=== PATIENT | female | born 1960 | race Caucasian/White ===

== ENCOUNTER 2016-12-02 14:18 | Inpatient (IN) | payer MEDICARE, MEDICAID ==
[~2016-12-02] VITALS: Ht 162.6 cm; Wt 99.8 kg
[~2016-12-02 14:18] MED LIST: ASPI-1159 PO; ATOR40TA70 PO; BACL-141 PO; CALC667C4 PO; CETI10CA2 PO; FURO-152 PO; GABA-529 PO; GLIM4TAB2 PO; KEPP500 PO; OMEP20CA10 PO; SEVE800T8 PO; WARF2.5T47 PO
[2016-12-02] MEDS ORDERED: LEVETIRACETAM 500MG PREMIX 100 ML IV ONE (15:30)
[2016-12-02 16:10] LABS: BASOPHILS % 0.3 % (0.0-2.0); EOSINOPHILS % 3.9 % (0.0-5.0); HEMATOCRIT. 36.1 % (36.0-48.0); HEMOGLOBIN. 11.7 g/dL (12.0-16.0); LYMPHOCYTES % 12.1 % (20.0-50.0); MEAN CORPUSCULAR HEMOGLOBIN 27.7 pg (28.0-32.0); MEAN CORPUSCULAR VOLUME 85.3 fL (81.0-99.0); MEAN PLATELET VOLUME 8.4 fl (7.4-10.4); MONOCYTES % 4.2 % (2.0-8.0); NEUTROPHILS % 79.5 % (40.0-76.0); PLATELET 210 x1000/uL (130-400); RED BLOOD CELL COUNT 4.23 mill/uL (4.2-5.4); RED CELL DISTRIBUTION WIDTH 15.3 % (11.6-14.6)
[2016-12-02 16:13] LABS: INR 1.2; PROTHROMBIN TIME 12.2 sec
[2016-12-02 16:14] LABS: CARBON DIOXIDE 24 mEq/L (21-32); CHLORIDE 95 mEq/L (98-107)
[2016-12-02] MEDS ORDERED: NITROGLYCERIN 0.4MG TABLET SL SL PRN (17:45)
[2016-12-02] MEDS ORDERED: LORAZEPAM 2MG/ML CPJ IV PRN (17:45)
[2016-12-02] MEDS ORDERED: ZOLPIDEM TARTRATE 5MG TABLET PO PRN (17:45)
[2016-12-02] MEDS ORDERED: DOCUSATE SODIUM 100MG CAPSULE PO PRN (17:45)
[2016-12-02] MEDS ORDERED: IPRATROPIUM/ALBUTEROL 0.5-3(2.5)MG/3ML NEB INH PRN (17:45)
[2016-12-02] MEDS ORDERED: DIPHENHYDRAMINE 50MG/ML VIAL IV PRN (17:45)
[2016-12-02] MEDS ORDERED: ONDANSETRON HCL 4MG/2ML VIAL IV PRN (17:45)
[2016-12-02] MEDS ORDERED: CLONIDINE 0.1MG TABLET PO PRN (17:45)
[2016-12-02] MEDS ORDERED: ENOXAPARIN 40MG/0.4ML SYR SUBCUT SCH (17:45)
[2016-12-02] MEDS ORDERED: GUAIFENESIN 200MG/10ML SUGAR FREE UDC PO PRN (17:45)
[2016-12-02] MEDS ORDERED: DEXTROSE 50% WATER 50ML SYRINGE IV PRN (17:45)
[2016-12-02] MEDS ORDERED: MAGNESIUM/ALUMINUM HYDROXIDE/SIMETHICONE 30ML UDC PO PRN (17:45)
[2016-12-02 19:30] VITALS: BP 149/94
[2016-12-02 20:00] VITALS: BP 149/94
[2016-12-02] MEDS: ATORVASTATIN CALCIUM 40MG TABLET PO SCH (21:21)
[2016-12-02] MEDS: LEVETIRACETAM 500MG TABLET PO SCH (21:22)
[2016-12-02] MEDS: GABAPENTIN 300MG CAPSULE PO SCH (21:22)
[2016-12-02] MEDS: ENOXAPARIN 30MG/0.3ML SYR SUBCUT SCH (21:22)
[2016-12-02] MEDS: BLOOD SUGAR DIAGNOSTIC STRIP TEST SCH (21:41)
[2016-12-02] MEDS: INSULIN LISPRO 100 UNITS/ML SUBCUT SCH (21:48)
[2016-12-02 23:08] LABS: CREATINE KINASE 79 IU/L (26-192); CREATINE KINASE MB FRACTION 1.3 ng/mL (0.5-3.6); TROPONIN I < 0.02 ng/mL (0.00-0.04)
[2016-12-03] VITALS: BP 116/64
[2016-12-03 04:00] VITALS: BP 149/79
[2016-12-03 05:18] LABS: BASOPHILS % 0.5 % (0.0-2.0); EOSINOPHILS % 4.7 % (0.0-5.0); HEMATOCRIT. 37.1 % (36.0-48.0); HEMOGLOBIN. 12.1 g/dL (12.0-16.0); LYMPHOCYTES % 22.2 % (20.0-50.0); MEAN CORPUSCULAR HEMOGLOBIN 28.1 pg (28.0-32.0); MEAN PLATELET VOLUME 8.6 fl (7.4-10.4); MONOCYTES % 5.1 % (2.0-8.0); NEUTROPHILS % 67.5 % (40.0-76.0); PLATELET 219 x1000/uL (130-400); RED BLOOD CELL COUNT 4.31 mill/uL (4.2-5.4); RED CELL DISTRIBUTION WIDTH 15.3 % (11.6-14.6)
[2016-12-03] MEDS: GABAPENTIN 300MG CAPSULE PO SCH ×3 (05:56→21:42)
[2016-12-03 06:22] LABS: CARBON DIOXIDE 22 mEq/L (21-32); CHLORIDE 95 mEq/L (98-107); CREATINE KINASE 81 IU/L (26-192); TROPONIN I < 0.02 ng/mL (0.00-0.04)
[2016-12-03 06:23] LABS: CREATINE KINASE MB FRACTION 1.2 ng/mL (0.5-3.6)
[2016-12-03] MEDS: BLOOD SUGAR DIAGNOSTIC STRIP TEST SCH ×4 (06:28→20:30)
[2016-12-03] MEDS: SEVELAMER CARBONATE 800 MG TABLET PO SCH ×3 (07:50→18:26)
[2016-12-03 08:00] VITALS: BP 146/86
[2016-12-03] MEDS: ENOXAPARIN 30MG/0.3ML SYR SUBCUT SCH (09:00)
[2016-12-03] MEDS: INSULIN LISPRO 100 UNITS/ML SUBCUT SCH ×4 (09:30→21:40)
[2016-12-03] MEDS: ASPIRIN 325MG EC TABLET PO SCH (09:31)
[2016-12-03] MEDS: LEVETIRACETAM 500MG TABLET PO SCH ×2 (09:31→20:20)
[2016-12-03] MEDS: FOLIC ACID/VITAMIN B COMP W-C TABLET PO SCH (09:31)
[2016-12-03] MEDS: PANTOPRAZOLE SODIUM 40 MG/VIAL IV SCH (09:31)
[2016-12-03 12:00] VITALS: BP 123/76
[2016-12-03] MEDS ORDERED: SODIUM CHLORIDE 0.9% 10ML VIAL ONE (14:05)
[2016-12-03] MEDS ORDERED: IOHEXOL-300 100 ML BOTTLE ONE (14:05)
[2016-12-03 16:00] VITALS: BP 110/74
[2016-12-03 20:00] VITALS: BP 100/65
[2016-12-03] MEDS: ATORVASTATIN CALCIUM 40MG TABLET PO SCH (20:20)
[2016-12-03] MEDS: ACETAMINOPHEN 325MG TABLET PO PRN (21:56)
[2016-12-04] VITALS: BP 99/56
[2016-12-04 04:00] VITALS: BP 99/64
[2016-12-04] MEDS: GABAPENTIN 300MG CAPSULE PO SCH ×3 (06:01→23:36)
[2016-12-04] MEDS: BLOOD SUGAR DIAGNOSTIC STRIP TEST SCH ×4 (06:38→23:37)
[2016-12-04 07:04] LABS: BASOPHILS % 0.7 % (0.0-2.0); EOSINOPHILS % 4.4 % (0.0-5.0); HEMATOCRIT. 34.9 % (36.0-48.0); HEMOGLOBIN. 11.4 g/dL (12.0-16.0); LYMPHOCYTES % 29.7 % (20.0-50.0); MEAN CORPUSCULAR HEMOGLOBIN 28.1 pg (28.0-32.0); MEAN CORPUSCULAR VOLUME 85.8 fL (81.0-99.0); MEAN PLATELET VOLUME 8.3 fl (7.4-10.4); MONOCYTES % 7.9 % (2.0-8.0); NEUTROPHILS % 57.3 % (40.0-76.0); PLATELET 201 x1000/uL (130-400); RED BLOOD CELL COUNT 4.06 mill/uL (4.2-5.4); RED CELL DISTRIBUTION WIDTH 15.8 % (11.6-14.6)
[2016-12-04 08:00] VITALS: BP 108/64
[2016-12-04] MEDS: INSULIN LISPRO 100 UNITS/ML SUBCUT SCH ×4 (09:18→23:41)
[2016-12-04] MEDS: SEVELAMER CARBONATE 800 MG TABLET PO SCH ×3 (09:19→18:07)
[2016-12-04] MEDS: ASPIRIN 325MG EC TABLET PO SCH (09:19)
[2016-12-04] MEDS: LEVETIRACETAM 500MG TABLET PO SCH ×2 (09:19→23:37)
[2016-12-04] MEDS: FOLIC ACID/VITAMIN B COMP W-C TABLET PO SCH (09:19)
[2016-12-04] MEDS: PANTOPRAZOLE SODIUM 40 MG/VIAL IV SCH (09:20)
[2016-12-04] MEDS: ENOXAPARIN 30MG/0.3ML SYR SUBCUT SCH (09:20)
[2016-12-04 12:00] VITALS: BP 104/62
[2016-12-04 16:00] VITALS: BP 101/61
[2016-12-04 20:00] VITALS: BP 94/64
[2016-12-04] MEDS: ATORVASTATIN CALCIUM 40MG TABLET PO SCH (23:36)
[2016-12-05] VITALS: BP_SYST 105; BP_SYST 83; BP_DIAS 45; BP_DIAS 59
[2016-12-05] MEDS: ACETAMINOPHEN 325MG TABLET PO PRN (02:14)
[2016-12-05 04:00] VITALS: BP 105/48
[2016-12-05] MEDS: GABAPENTIN 300MG CAPSULE PO SCH ×3 (06:00→21:51)
[2016-12-05 06:34] LABS: BASOPHILS % 0.4 % (0.0-2.0); EOSINOPHILS % 6.7 % (0.0-5.0); HEMATOCRIT. 35.1 % (36.0-48.0); HEMOGLOBIN. 11.4 g/dL (12.0-16.0); LYMPHOCYTES % 26.2 % (20.0-50.0); MEAN CORPUSCULAR HEMOGLOBIN 28.3 pg (28.0-32.0); MEAN CORPUSCULAR VOLUME 87.4 fL (81.0-99.0); MEAN PLATELET VOLUME 8.3 fl (7.4-10.4); MONOCYTES % 7.2 % (2.0-8.0); NEUTROPHILS % 59.5 % (40.0-76.0); PLATELET 190 x1000/uL (130-400); RED BLOOD CELL COUNT 4.01 mill/uL (4.2-5.4); RED CELL DISTRIBUTION WIDTH 15.6 % (11.6-14.6)
[2016-12-05 08:00] VITALS: BP 103/69
[2016-12-05] MEDS: ENOXAPARIN 30MG/0.3ML SYR SUBCUT SCH (08:09)
[2016-12-05] MEDS: INSULIN LISPRO 100 UNITS/ML SUBCUT SCH ×4 (08:09→21:52)
[2016-12-05] MEDS: FOLIC ACID/VITAMIN B COMP W-C TABLET PO SCH (08:09)
[2016-12-05] MEDS: SEVELAMER CARBONATE 800 MG TABLET PO SCH ×3 (08:09→17:02)
[2016-12-05] MEDS: LEVETIRACETAM 500MG TABLET PO SCH ×2 (08:09→21:50)
[2016-12-05] MEDS: PANTOPRAZOLE SODIUM 40 MG/VIAL IV SCH (08:12)
[2016-12-05] MEDS: ASPIRIN 325MG EC TABLET PO SCH (08:12)
[2016-12-05] MEDS: BLOOD SUGAR DIAGNOSTIC STRIP TEST SCH ×4 (08:12→21:54)
[2016-12-05 12:00] VITALS: BP 99/64
[2016-12-05 16:00] VITALS: BP 107/62
[2016-12-05 20:00] VITALS: BP 112/69
[2016-12-05] MEDS: ATORVASTATIN CALCIUM 40MG TABLET PO SCH (21:54)
[2016-12-06] VITALS: BP 99/60
[2016-12-06] MEDS: ACETAMINOPHEN 325MG TABLET PO PRN ×2 (02:02→09:59)
[2016-12-06 04:00] VITALS: BP 94/49
[2016-12-06] MEDS: GABAPENTIN 300MG CAPSULE PO SCH ×2 (06:04→14:30)
[2016-12-06] MEDS: BLOOD SUGAR DIAGNOSTIC STRIP TEST SCH ×2 (06:32→12:50)
[2016-12-06 07:10] LABS: BASOPHILS % 0.7 % (0.0-2.0); EOSINOPHILS % 5.6 % (0.0-5.0); HEMATOCRIT. 36.1 % (36.0-48.0); HEMOGLOBIN. 11.9 g/dL (12.0-16.0); LYMPHOCYTES % 25.9 % (20.0-50.0); MEAN CORPUSCULAR HEMOGLOBIN 28.5 pg (28.0-32.0); MEAN CORPUSCULAR VOLUME 86.3 fL (81.0-99.0); MEAN PLATELET VOLUME 8.6 fl (7.4-10.4); MONOCYTES % 7.2 % (2.0-8.0); NEUTROPHILS % 60.6 % (40.0-76.0); PLATELET 189 x1000/uL (130-400); RED BLOOD CELL COUNT 4.18 mill/uL (4.2-5.4); RED CELL DISTRIBUTION WIDTH 15.5 % (11.6-14.6)
[2016-12-06 08:00] VITALS: BP 123/70
[2016-12-06] MEDS: FOLIC ACID/VITAMIN B COMP W-C TABLET PO SCH (08:20)
[2016-12-06] MEDS: INSULIN LISPRO 100 UNITS/ML SUBCUT SCH ×2 (08:20→12:50)
[2016-12-06] MEDS: LEVETIRACETAM 500MG TABLET PO SCH (08:20)
[2016-12-06] MEDS: SEVELAMER CARBONATE 800 MG TABLET PO SCH ×2 (08:20→12:50)
[2016-12-06] MEDS: ASPIRIN 325MG EC TABLET PO SCH (08:20)
[2016-12-06] MEDS: ENOXAPARIN 30MG/0.3ML SYR SUBCUT SCH (08:23)
[2016-12-06] MEDS ORDERED: FAMOTIDINE 20MG TABLET PO SCH (09:00)
[2016-12-06 12:00] VITALS: BP 104/63
[2016-12-06 13:28] VITALS: BP 104/63
== END 2016-12-06 15:10 | disposition home or self-care (01) | DRG 100 ==
LOC: ER 14:51 → 6EST 16:15 → ENRESERV 16:25
PROVIDERS: ADMIT Internal Medicine; ATTEND Internal Medicine
PROC: 5A1D60Z (ICD-10-PCS; principal; 2016-12-03)
DX: G40.909 Epilepsy, unspecified, not intractable, without status epilepticus (principal); N18.6 End stage renal disease; E44.0 Moderate protein-calorie malnutrition; I12.0 Hypertensive chronic kidney disease with stage 5 chronic kidney disease or end stage renal disease; E11.22 Type 2 diabetes mellitus with diabetic chronic kidney disease; E78.00 Pure hypercholesterolemia, unspecified; J45.909 Unspecified asthma, uncomplicated; E11.42 Type 2 diabetes mellitus with diabetic polyneuropathy; Z99.2 Dependence on renal dialysis; Z68.37 Body mass index [BMI] 37.0-37.9, adult; Z79.4 Long term (current) use of insulin; Z79.82 Long term (current) use of aspirin; Z86.73 Personal history of transient ischemic attack (TIA), and cerebral infarction without residual deficits; Z79.899 Other long term (current) drug therapy; Z90.49 Acquired absence of other specified parts of digestive tract
CPT/HCPCS: 36415; 70470; 70551; 71010; 80048; 80053; 82542; 82550; 82553; 82962; 83036; 83735; 84484; 85025; 85610; 93005; 96374; 97116; 97162; 97166; 97530; 97535; 99285; A4216; C9113; J1650; J1815; J1953; J2060; J7030; Q9967

== ENCOUNTER 2017-06-16 16:14 | Inpatient (IN) | payer MEDICARE, MEDICAID ==
[~2017-06-16] VITALS: Ht 152.4 cm; Wt 113.4 kg
[2017-06-16 17:30] LABS: BASOPHILS % 0.6 % (0.0-2.0); EOSINOPHILS % 3.9 % (0.0-5.0); HEMATOCRIT. 35.3 % (36.0-48.0); HEMOGLOBIN. 11.4 g/dL (12.0-16.0); LYMPHOCYTES % 15.3 % (20.0-50.0); MEAN CORPUSCULAR HEMOGLOBIN 30.5 pg (28.0-32.0); MEAN CORPUSCULAR VOLUME 94.5 fL (81.0-99.0); MEAN PLATELET VOLUME 8.1 fl (7.4-10.4); MONOCYTES % 3.5 % (2.0-8.0); NEUTROPHILS % 76.7 % (40.0-76.0); PLATELET 236 x1000/uL (130-400); RED BLOOD CELL COUNT 3.74 mill/uL (4.2-5.4); RED CELL DISTRIBUTION WIDTH 16.2 % (11.6-14.6)
[2017-06-16 17:37] LABS: CHLORIDE 99 mEq/L (98-107)
[2017-06-16 17:42] LABS: INR 1.4; PARTIAL THROMBOPLASTIN TIME 27.2 sec (23.4-31.0)
[2017-06-16 17:45] LABS: CARBON DIOXIDE 26 mEq/L (21-32)
[2017-06-16 22:52] VITALS: BP 142/62
[2017-06-17] MEDS ORDERED: DEXTROSE 50% WATER 50ML SYRINGE IV PRN (01:30)
[2017-06-17] MEDS ORDERED: ACETAMINOPHEN 325MG TABLET PO PRN (02:00)
[2017-06-17] MEDS: LEVETIRACETAM 250MG TABLET PO SCH ×3 (02:05→17:21)
[2017-06-17 04:00] VITALS: BP 121/62
[2017-06-17] MEDS: BLOOD SUGAR DIAGNOSTIC STRIP TEST SCH ×4 (05:35→21:53)
[2017-06-17] MEDS ORDERED: LIDOCAINE HCL 1% 20ML VIAL (Pyxis) INJ ONE (06:54)
[2017-06-17 08:05] VITALS: BP 127/60
[2017-06-17] MEDS: INSULIN LISPRO 100 UNITS/ML SUBCUT SCH ×7 (09:27→21:00)
[2017-06-17] MEDS: GLIMEPIRIDE 4MG TABLET PO SCH (09:28)
[2017-06-17] MEDS: BACLOFEN 10MG TABLET PO SCH ×3 (09:28→17:21)
[2017-06-17] MEDS: OMEPRAZOLE 20MG CAPSULE EXTENDED RELEASE PO SCH (09:28)
[2017-06-17] MEDS: CALCIUM ACETATE 667MG CAPSULE PO SCH ×3 (09:28→17:22)
[2017-06-17] MEDS: ASPIRIN 81MG EC TABLET PO SCH (09:28)
[2017-06-17 09:53] LABS: BASOPHILS % 1.1 % (0.0-2.0); HEMATOCRIT. 30.4 % (36.0-48.0); HEMOGLOBIN. 10.1 g/dL (12.0-16.0); LYMPHOCYTES % 18.5 % (20.0-50.0); MEAN CORPUSCULAR HEMOGLOBIN 30.9 pg (28.0-32.0); MEAN CORPUSCULAR VOLUME 93.2 fL (81.0-99.0); MEAN PLATELET VOLUME 8.1 fl (7.4-10.4); MONOCYTES % 4.6 % (2.0-8.0); NEUTROPHILS % 71.8 % (40.0-76.0); PLATELET 199 x1000/uL (130-400); RED BLOOD CELL COUNT 3.27 mill/uL (4.2-5.4)
[2017-06-17 09:56] LABS: INR 1.4; PROTHROMBIN TIME 14.8 sec (9.4-11.6)
[2017-06-17] MEDS: NYSTATIN 100,000 UNITS/GM CREAM 15GM TOP SCH ×2 (11:45→22:00)
[2017-06-17] MEDS: INSULIN GLARGINE UD 100 UNITS/ML SYR SUBCUT SCH ×2 (11:46→22:00)
[2017-06-17 12:00] VITALS: BP 127/66
[2017-06-17 16:04] VITALS: BP 134/73
[2017-06-17] MEDS ORDERED: WARFARIN SODIUM 2.5MG TABLET PO SCH (18:00)
[2017-06-17] MEDS ORDERED: WARFARIN SODIUM 3MG TABLET PO NR (18:00)
[2017-06-17 20:00] VITALS: BP 127/68
[2017-06-17] MEDS: GABAPENTIN 300MG CAPSULE PO SCH (21:57)
[2017-06-17] MEDS: ATORVASTATIN CALCIUM 40MG TABLET PO SCH (21:57)
[2017-06-18] VITALS (7 sets, daily range): BP systolic 103–135; BP diastolic 60–84
[2017-06-18] MEDS: LEVETIRACETAM 250MG TABLET PO SCH ×2 (02:07→17:33)
[2017-06-18 06:33] LABS: INR 1.3; PROTHROMBIN TIME 13.6 sec (9.4-11.6)
[2017-06-18 06:52] LABS: BASOPHILS % 0.3 % (0.0-2.0); EOSINOPHILS % 4.1 % (0.0-5.0); HEMOGLOBIN. 10.1 g/dL (12.0-16.0); LYMPHOCYTES % 17.2 % (20.0-50.0); MEAN CORPUSCULAR HEMOGLOBIN 30.9 pg (28.0-32.0); MEAN CORPUSCULAR VOLUME 94.3 fL (81.0-99.0); MEAN PLATELET VOLUME 8.6 fl (7.4-10.4); NEUTROPHILS % 73.4 % (40.0-76.0); PLATELET 179 x1000/uL (130-400); RED BLOOD CELL COUNT 3.29 mill/uL (4.2-5.4); RED CELL DISTRIBUTION WIDTH 15.8 % (11.6-14.6)
[2017-06-18] MEDS: BLOOD SUGAR DIAGNOSTIC STRIP TEST SCH ×4 (07:40→21:35)
[2017-06-18] MEDS: CALCIUM ACETATE 667MG CAPSULE PO SCH ×3 (08:38→17:38)
[2017-06-18] MEDS: OMEPRAZOLE 20MG CAPSULE EXTENDED RELEASE PO SCH (08:38)
[2017-06-18] MEDS: BACLOFEN 10MG TABLET PO SCH ×3 (08:38→17:34)
[2017-06-18] MEDS: GLIMEPIRIDE 4MG TABLET PO SCH (08:38)
[2017-06-18] MEDS: ASPIRIN 81MG EC TABLET PO SCH (08:38)
[2017-06-18] MEDS: INSULIN LISPRO 100 UNITS/ML SUBCUT SCH ×7 (08:40→21:36)
[2017-06-18] MEDS: INSULIN GLARGINE UD 100 UNITS/ML SYR SUBCUT SCH ×2 (08:41→21:36)
[2017-06-18] MEDS: NYSTATIN 100,000 UNITS/GM CREAM 15GM TOP SCH ×2 (08:51→21:00)
[2017-06-18] MEDS ORDERED: ENOXAPARIN 40MG/0.4ML SYR SUBCUT SCH (09:00)
[2017-06-18] MEDS ORDERED: WARFARIN SODIUM 3MG TABLET PO SCH (18:00)
[2017-06-18] MEDS: GABAPENTIN 300MG CAPSULE PO SCH (21:35)
[2017-06-18] MEDS: ATORVASTATIN CALCIUM 40MG TABLET PO SCH (21:35)
[2017-06-19] MEDS ORDERED: FAMOTIDINE 20MG TABLET PO SCH (09:00)
== END 2017-06-18 22:40 | disposition home or self-care (01) | DRG 314 ==
LOC: ER 16:50 → 7WST 20:15 → ENRESERV 21:13
PROVIDERS: ADMIT Internal Medicine Nephrology; ATTEND Internal Medicine Nephrology
PROC: 02HV33Z Insertion of Infusion Device into Superior Vena Cava, Percutaneous Approach (ICD-10-PCS; principal; 2017-06-17)
PROC: B5181ZA Fluoroscopy of Superior Vena Cava using Low Osmolar Contrast, Guidance (ICD-10-PCS; 2017-06-17)
PROC: 5A1D70Z Performance of Urinary Filtration, Intermittent, Less than 6 Hours Per Day (ICD-10-PCS; 2017-06-17)
DX: T82.818A Embolism due to vascular prosthetic devices, implants and grafts, initial encounter (principal); N18.6 End stage renal disease; E11.22 Type 2 diabetes mellitus with diabetic chronic kidney disease; I12.0 Hypertensive chronic kidney disease with stage 5 chronic kidney disease or end stage renal disease; I69.354 Hemiplegia and hemiparesis following cerebral infarction affecting left non-dominant side; G40.909 Epilepsy, unspecified, not intractable, without status epilepticus; E78.00 Pure hypercholesterolemia, unspecified; Y83.2 Surgical operation with anastomosis, bypass or graft as the cause of abnormal reaction of the patient, or of later complication, without mention of misadventure at the time of the procedure; Z79.01 Long term (current) use of anticoagulants; Z79.899 Other long term (current) drug therapy; Z79.82 Long term (current) use of aspirin; Z90.49 Acquired absence of other specified parts of digestive tract; Y92.89 Other specified places as the place of occurrence of the external cause; E87.5 Hyperkalemia; D64.9 Anemia, unspecified
CPT/HCPCS: 36415; 36569; 71045; 76937; 77001; 80048; 80053; 82962; 85025; 85610; 85730; 86850; 86900; 93005; 99285; A6261; C1752; J1650; J1815; J3490; J7030; J7040

== ENCOUNTER 2017-08-09 14:35 | Inpatient (IN) | payer MEDICARE, MEDICAID ==
[~2017-08-09] VITALS: Ht 162.6 cm; Wt 103.9 kg
[~2017-08-09 14:35] MED LIST changes: -WARF2.5T47 PO
[2017-08-09 17:21] LABS: BASOPHILS % 0.5 % (0.0-2.0); EOSINOPHILS % 5.1 % (0.0-5.0); HEMATOCRIT. 33.4 % (36.0-48.0); HEMOGLOBIN. 10.8 g/dL (12.0-16.0); LYMPHOCYTES % 18.2 % (20.0-50.0); MEAN CORPUSCULAR HEMOGLOBIN 30.4 pg (28.0-32.0); MEAN CORPUSCULAR VOLUME 93.6 fL (81.0-99.0); MEAN PLATELET VOLUME 8.4 fl (7.4-10.4); MONOCYTES % 3.6 % (2.0-8.0); NEUTROPHILS % 72.6 % (40.0-76.0); PLATELET 219 x1000/uL (130-400); RED BLOOD CELL COUNT 3.57 mill/uL (4.2-5.4); RED CELL DISTRIBUTION WIDTH 15.2 % (11.6-14.6)
[2017-08-09 17:25] LABS: PROTHROMBIN TIME 20.7 sec (9.4-11.6)
[2017-08-09 17:27] LABS: CHLORIDE 97 mEq/L (98-107)
[2017-08-09] MEDS ORDERED: MORPHINE SULFATE 2 MG/ML CPJ (NOT FOR IM USE) IV PRN (21:15)
[2017-08-09] MEDS ORDERED: DOCUSATE SODIUM 100MG CAPSULE PO PRN (21:15)
[2017-08-09] MEDS ORDERED: ENOXAPARIN 40MG/0.4ML SYR SUBCUT SCH (21:15)
[2017-08-09] MEDS ORDERED: ONDANSETRON HCL 4MG/2ML VIAL IV PRN (21:15)
[2017-08-09] MEDS ORDERED: LEVOFLOXACIN 500MG PREMIX 100 ML IV SCH (21:15)
[2017-08-09] MEDS ORDERED: DIATR MEGLU/DIATRIZOATE SOLN 30ML ONE (22:35)
[2017-08-10] MEDS ORDERED: ACET-2178 PO (05:37)
[2017-08-10] MEDS ORDERED: WARF2TAB57 PO (05:37)
[2017-08-10] MEDS ORDERED: TRAM50TA3 PO (05:37)
[2017-08-10] MEDS ORDERED: ACETAMINOPHEN 325MG TABLET PO PRN (05:45)
[2017-08-10] MEDS ORDERED: DEXTROSE 50% WATER 50ML SYRINGE IV PRN (05:45)
[2017-08-10 05:47] VITALS: BP 133/57
[2017-08-10] MEDS ORDERED: LEVOFLOXACIN 500MG PREMIX 100 ML IV SCH (06:00)
[2017-08-10] MEDS: BLOOD SUGAR DIAGNOSTIC STRIP TEST SCH ×4 (06:08→21:24)
[2017-08-10] MEDS: INSULIN LISPRO 100 UNITS/ML SUBCUT SCH ×4 (06:44→21:45)
[2017-08-10] MEDS: OMEPRAZOLE 20MG CAPSULE EXTENDED RELEASE PO SCH (07:10)
[2017-08-10 07:15] LABS: INR 1.8; PROTHROMBIN TIME 18.9 sec (9.4-11.6)
[2017-08-10 07:47] VITALS: BP 106/53
[2017-08-10] MEDS ORDERED: LEVETIRACETAM 250MG TABLET PO SCH (09:00)
[2017-08-10] MEDS ORDERED: FUROSEMIDE 20MG TABLET PO SCH (09:00)
[2017-08-10] MEDS: PANTOPRAZOLE SODIUM 40 MG/VIAL IV SCH (09:56)
[2017-08-10] MEDS: GLIMEPIRIDE 2MG TABLET PO SCH (10:05)
[2017-08-10] MEDS: SEVELAMER CARBONATE 800 MG TABLET PO SCH ×3 (10:06→16:46)
[2017-08-10] MEDS: CALCIUM ACETATE 667MG CAPSULE PO SCH ×3 (10:06→16:45)
[2017-08-10] MEDS: BACLOFEN 10MG TABLET PO SCH ×3 (10:06→16:45)
[2017-08-10] MEDS: ASPIRIN 81MG EC TABLET PO SCH (10:07)
[2017-08-10 12:17] VITALS: BP 137/73
[2017-08-10 16:02] VITALS: BP 111/60
[2017-08-10] MEDS: LEVETIRACETAM 500MG TABLET PO SCH (16:46)
[2017-08-10] MEDS: ACETAMINOPHEN 325MG TABLET PO PRN (16:52)
[2017-08-10 17:37] LABS: AMMONIA 33 uMol/L (<32)
[2017-08-10 17:51] LABS: T4 FREE 1.04 ng/dL (0.76-1.46)
[2017-08-10] MEDS: WARFARIN SODIUM 2MG TABLET PO SCH (17:55)
[2017-08-10 19:34] LABS: FOLIC ACID (FOLATE) SERUM 8.5 ng/mL (>5.38)
[2017-08-10 20:00] VITALS: BP 99/59
[2017-08-10] MEDS: GABAPENTIN 300MG CAPSULE PO SCH (21:47)
[2017-08-10] MEDS: ATORVASTATIN CALCIUM 40MG TABLET PO SCH (21:47)
[2017-08-11] VITALS: BP 175/67
[2017-08-11] MEDS ORDERED: TEMAZEPAM 15MG CAPSULE PO PRN (00:15)
[2017-08-11] MEDS: IPRATROPIUM/ALBUTEROL 0.5-3(2.5)MG/3ML NEB INH SCH ×4 (02:52→20:00)
[2017-08-11 04:00] VITALS: BP 151/60
[2017-08-11 06:16] LABS: INR 1.6; PROTHROMBIN TIME 17.2 sec (9.4-11.6)
[2017-08-11] MEDS: BLOOD SUGAR DIAGNOSTIC STRIP TEST SCH ×4 (06:30→20:56)
[2017-08-11 06:33] LABS: BASOPHILS % 0.5 % (0.0-2.0); EOSINOPHILS % 3.4 % (0.0-5.0); HEMATOCRIT. 31.6 % (36.0-48.0); HEMOGLOBIN. 10.1 g/dL (12.0-16.0); LYMPHOCYTES % 20.3 % (20.0-50.0); MEAN CORPUSCULAR VOLUME 93.8 fL (81.0-99.0); MEAN PLATELET VOLUME 8.3 fl (7.4-10.4); MONOCYTES % 6.7 % (2.0-8.0); NEUTROPHILS % 69.1 % (40.0-76.0); PLATELET 201 x1000/uL (130-400); RED BLOOD CELL COUNT 3.36 mill/uL (4.2-5.4); RED CELL DISTRIBUTION WIDTH 15.4 % (11.6-14.6)
[2017-08-11] MEDS: INSULIN LISPRO 100 UNITS/ML SUBCUT SCH ×4 (06:33→20:58)
[2017-08-11] MEDS: OMEPRAZOLE 20MG CAPSULE EXTENDED RELEASE PO SCH (06:33)
[2017-08-11] MEDS: SEVELAMER CARBONATE 800 MG TABLET PO SCH ×3 (07:40→17:40)
[2017-08-11 08:00] VITALS: BP 111/70
[2017-08-11] MEDS: BACLOFEN 10MG TABLET PO SCH ×3 (09:00→16:55)
[2017-08-11] MEDS: CALCIUM ACETATE 667MG CAPSULE PO SCH ×3 (09:00→16:55)
[2017-08-11] MEDS: ASPIRIN 81MG EC TABLET PO SCH (09:00)
[2017-08-11] MEDS: LEVETIRACETAM 500MG TABLET PO SCH ×2 (09:00→16:55)
[2017-08-11] MEDS: GLIMEPIRIDE 2MG TABLET PO SCH (09:00)
[2017-08-11] MEDS: PANTOPRAZOLE SODIUM 40 MG/VIAL IV SCH (09:00)
[2017-08-11 11:57] VITALS: BP 107/55
[2017-08-11 16:00] VITALS: BP 131/63
[2017-08-11] MEDS: ACETAMINOPHEN 325MG TABLET PO PRN (16:52)
[2017-08-11 20:00] VITALS: BP 101/48
[2017-08-11] MEDS: GABAPENTIN 300MG CAPSULE PO SCH (20:53)
[2017-08-11] MEDS: WARFARIN SODIUM 2MG TABLET PO SCH (20:53)
[2017-08-11] MEDS: ATORVASTATIN CALCIUM 40MG TABLET PO SCH (20:53)
[2017-08-12] VITALS: BP 116/48
[2017-08-12] MEDS: IPRATROPIUM/ALBUTEROL 0.5-3(2.5)MG/3ML NEB INH SCH ×3 (01:28→15:22)
[2017-08-12] MEDS: TRAMADOL 50MG TABLET PO PRN (03:51)
[2017-08-12 04:00] VITALS: BP 109/43
[2017-08-12] MEDS ORDERED: LEVOFLOXACIN 250MG PREMIX 50 ML IV SCH (06:00)
[2017-08-12] MEDS: BLOOD SUGAR DIAGNOSTIC STRIP TEST SCH ×4 (06:41→20:57)
[2017-08-12] MEDS: OMEPRAZOLE 20MG CAPSULE EXTENDED RELEASE PO SCH (06:46)
[2017-08-12] MEDS: INSULIN LISPRO 100 UNITS/ML SUBCUT SCH ×4 (06:46→21:04)
[2017-08-12 07:25] LABS: BASOPHILS % 0.4 % (0.0-2.0); EOSINOPHILS % 2.6 % (0.0-5.0); HEMATOCRIT. 30.8 % (36.0-48.0); LYMPHOCYTES % 23.9 % (20.0-50.0); MEAN CORPUSCULAR HEMOGLOBIN 30.5 pg (28.0-32.0); MEAN CORPUSCULAR VOLUME 93.8 fL (81.0-99.0); MEAN PLATELET VOLUME 8.4 fl (7.4-10.4); MONOCYTES % 7.8 % (2.0-8.0); NEUTROPHILS % 65.3 % (40.0-76.0); PLATELET 185 x1000/uL (130-400); RED BLOOD CELL COUNT 3.28 mill/uL (4.2-5.4); RED CELL DISTRIBUTION WIDTH 15.1 % (11.6-14.6)
[2017-08-12 08:00] VITALS: BP 112/46
[2017-08-12] MEDS: PANTOPRAZOLE SODIUM 40 MG/VIAL IV SCH (09:00)
[2017-08-12] MEDS: GLIMEPIRIDE 2MG TABLET PO SCH (09:08)
[2017-08-12] MEDS: SEVELAMER CARBONATE 800 MG TABLET PO SCH ×3 (09:08→17:39)
[2017-08-12] MEDS: CALCIUM ACETATE 667MG CAPSULE PO SCH ×3 (09:09→17:40)
[2017-08-12] MEDS: ASPIRIN 81MG EC TABLET PO SCH (09:09)
[2017-08-12] MEDS: LEVETIRACETAM 500MG TABLET PO SCH ×2 (09:09→17:40)
[2017-08-12] MEDS: BACLOFEN 10MG TABLET PO SCH ×3 (09:09→17:40)
[2017-08-12 10:27] LABS: INR 1.5
[2017-08-12 11:20] VITALS: BP 114/53
[2017-08-12] MEDS: ACETAMINOPHEN 325MG TABLET PO PRN (12:44)
[2017-08-12 16:00] VITALS: BP 132/67
[2017-08-12] MEDS ORDERED: WARFARIN SODIUM 3MG TABLET PO SCH (18:00)
[2017-08-12 20:00] VITALS: BP 113/52
[2017-08-12] MEDS: ATORVASTATIN CALCIUM 40MG TABLET PO SCH (21:03)
[2017-08-12] MEDS: GABAPENTIN 300MG CAPSULE PO SCH (21:03)
[2017-08-13] VITALS: BP 123/64
[2017-08-13] MEDS: TRAMADOL 50MG TABLET PO PRN (01:15)
[2017-08-13] MEDS: IPRATROPIUM/ALBUTEROL 0.5-3(2.5)MG/3ML NEB INH SCH ×3 (02:13→12:16)
[2017-08-13 04:00] VITALS: BP 126/57
[2017-08-13] MEDS: ACETAMINOPHEN 325MG TABLET PO PRN (04:07)
[2017-08-13 06:30] LABS: INR 1.6; PROTHROMBIN TIME 16.7 sec (9.4-11.6)
[2017-08-13] MEDS: BLOOD SUGAR DIAGNOSTIC STRIP TEST SCH ×2 (06:43→12:10)
[2017-08-13] MEDS: INSULIN LISPRO 100 UNITS/ML SUBCUT SCH ×2 (06:43→13:38)
[2017-08-13 08:00] VITALS: BP 110/50
[2017-08-13] MEDS ORDERED: FAMOTIDINE 20MG TABLET PO SCH (09:00)
[2017-08-13] MEDS: BACLOFEN 10MG TABLET PO SCH ×2 (09:05→13:36)
[2017-08-13] MEDS: LEVETIRACETAM 500MG TABLET PO SCH (09:05)
[2017-08-13] MEDS: GLIMEPIRIDE 2MG TABLET PO SCH (09:05)
[2017-08-13] MEDS: CALCIUM ACETATE 667MG CAPSULE PO SCH ×2 (09:05→13:36)
[2017-08-13] MEDS: SEVELAMER CARBONATE 800 MG TABLET PO SCH ×2 (09:05→13:36)
[2017-08-13] MEDS: ASPIRIN 81MG EC TABLET PO SCH (09:06)
[2017-08-13 12:00] VITALS: BP 131/58
[2017-08-13 15:20] VITALS: BP 128/61
[2017-08-13] MEDS ORDERED: WARFARIN SODIUM 3MG TABLET PO SCH (18:00)
== END 2017-08-13 17:35 | disposition home or self-care (01) | DRG 91 ==
LOC: ER 14:41 → 8WST 21:09 → ENRESERV 08-10 01:48
PROVIDERS: ADMIT Internal Medicine; ATTEND Internal Medicine
PROC: 5A1D70Z Performance of Urinary Filtration, Intermittent, Less than 6 Hours Per Day (ICD-10-PCS; 2017-08-09)
PROC: 5A1D70Z Performance of Urinary Filtration, Intermittent, Less than 6 Hours Per Day (ICD-10-PCS; 2017-08-10)
PROC: 5A1D70Z Performance of Urinary Filtration, Intermittent, Less than 6 Hours Per Day (ICD-10-PCS; principal; 2017-08-11)
PROC: 5A1D70Z Performance of Urinary Filtration, Intermittent, Less than 6 Hours Per Day (ICD-10-PCS; 2017-08-13)
DX: G92 Toxic encephalopathy (principal); N18.6 End stage renal disease; I13.2 Hypertensive heart and chronic kidney disease with heart failure and with stage 5 chronic kidney disease, or end stage renal disease; E46 Unspecified protein-calorie malnutrition; E11.22 Type 2 diabetes mellitus with diabetic chronic kidney disease; R47.01 Aphasia; I69.354 Hemiplegia and hemiparesis following cerebral infarction affecting left non-dominant side; E87.70 Fluid overload, unspecified; E87.5 Hyperkalemia; I50.9 Heart failure, unspecified; K21.9 Gastro-esophageal reflux disease without esophagitis; G40.909 Epilepsy, unspecified, not intractable, without status epilepticus; F32.9 Major depressive disorder, single episode, unspecified; E78.5 Hyperlipidemia, unspecified; E78.00 Pure hypercholesterolemia, unspecified; R26.9 Unspecified abnormalities of gait and mobility; M19.90 Unspecified osteoarthritis, unspecified site; E66.9 Obesity, unspecified; D64.9 Anemia, unspecified; Z99.2 Dependence on renal dialysis; Z90.49 Acquired absence of other specified parts of digestive tract; Z80.9 Family history of malignant neoplasm, unspecified; Z79.899 Other long term (current) drug therapy; Z68.39 Body mass index [BMI] 39.0-39.9, adult
CPT/HCPCS: 36415; 70450; 71045; 74176; 80048; 80053; 80061; 82140; 82607; 82746; 82962; 83036; 83880; 84439; 84443; 84481; 84484; 85025; 85610; 85651; 87040; 93005; 93880; 94640; 97162; 97165; A6261; C9113; G0482; J1815; J1956; J7030; J7050; J7620; Q9963

== ENCOUNTER 2018-04-09 13:46 | Inpatient (IN) | payer MEDICARE, MEDICAID ==
[~2018-04-09] VITALS: Ht 152.4 cm; Wt 112.0 kg
[~2018-04-09 13:46] MED LIST changes: +ACET-2178 PO; -GABA-529 PO; -GLIM4TAB2 PO; +GLIP5TAB12 PO; +INSLIS SUBCUT; +LANTUSUD SUBCUT; +NYST15OI TP; +TRAM50TA3 PO; +WARF3TAB58 PO
[2018-04-09] MEDS ORDERED: VANCOMYCIN 1 G PREMIX 200 ML IV SCH (15:45)
[2018-04-09] MEDS ORDERED: PIPERACILLIN/TAZ 3.375G PREMIX 50 ML IV ONE (15:45)
[2018-04-09 16:22] LABS: BASOPHILS % 0.7 % (0.0-2.0); EOSINOPHILS % 1.6 % (0.0-5.0); HEMATOCRIT. 36.5 % (36.0-48.0); HEMOGLOBIN. 12.2 g/dL (12.0-16.0); MEAN CORPUSCULAR HEMOGLOBIN 31.4 pg (28.0-32.0); MEAN CORPUSCULAR VOLUME 94.1 fL (81.0-99.0); MEAN PLATELET VOLUME 8.2 fl (7.4-10.4); MONOCYTES % 3.5 % (2.0-8.0); NEUTROPHILS % 79.2 % (40.0-76.0); PLATELET 279 x1000/uL (130-400); RED BLOOD CELL COUNT 3.87 mill/uL (4.2-5.4); RED CELL DISTRIBUTION WIDTH 14.6 % (11.6-14.6)
[2018-04-09 16:27] LABS: CHLORIDE 90 mEq/L (98-107); INR 2.5; PROTHROMBIN TIME 24.3 sec (9.1-11.1)
[2018-04-09] MEDS ORDERED: IPRATROPIUM/ALBUTEROL 0.5-3(2.5)MG/3ML NEB INH PRN (17:30)
[2018-04-09] MEDS ORDERED: MAGNESIUM/ALUMINUM HYDROXIDE/SIMETHICONE 30ML UDC PO PRN (17:30)
[2018-04-09] MEDS ORDERED: DIPHENHYDRAMINE 50MG/ML VIAL IV PRN (17:30)
[2018-04-09] MEDS ORDERED: ONDANSETRON HCL 4MG/2ML INJ IV PRN (17:30)
[2018-04-09] MEDS ORDERED: NA PHOS,M-B/NA PHOS,DI-BA ENEMA 118ML PR PRN (17:30)
[2018-04-09] MEDS ORDERED: ACETAMINOPHEN 325MG TABLET PO PRN (17:30)
[2018-04-09] MEDS ORDERED: DOCUSATE SODIUM 100MG CAPSULE PO PRN (17:30)
[2018-04-09] MEDS ORDERED: CLONIDINE 0.1MG TABLET PO PRN (17:30)
[2018-04-09] MEDS ORDERED: ENOXAPARIN 40MG/0.4ML SYR SUBCUT SCH (17:30)
[2018-04-09] MEDS ORDERED: LORAZEPAM 2MG/ML CPJ IV PRN (17:30)
[2018-04-09] MEDS ORDERED: GUAIFENESIN 200MG/10ML SUGAR FREE UDC PO PRN (17:30)
[2018-04-09] MEDS ORDERED: INSU300I SQ (23:05)
[2018-04-09] MEDS ORDERED: GABA-529 PO (23:05)
[2018-04-09 23:51] VITALS: BP 118/55
[2018-04-10] VITALS: BP 111/45
[2018-04-10 00:44] LABS: CHLORIDE 92 mEq/L (98-107)
[2018-04-10] MEDS ORDERED: DEXTROSE 50% WATER 50ML SYRINGE IV PRN (03:45)
[2018-04-10 04:00] VITALS: BP 106/47
[2018-04-10] MEDS ORDERED: VANCOMYCIN 500 MG PREMIX 100 ML IV NR ×2 (06:00→21:00)
[2018-04-10] MEDS: BLOOD SUGAR DIAGNOSTIC STRIP TEST SCH ×4 (06:27→21:00)
[2018-04-10 07:38] LABS: CHLORIDE 94 mEq/L (98-107)
[2018-04-10] MEDS: INSULIN LISPRO 100 UNITS/ML SUBCUT SCH ×4 (07:39→22:20)
[2018-04-10 07:47] LABS: LDL CHOLESTEROL 30 mg/dL (5-100)
[2018-04-10 07:49] LABS: HDL CHOLESTEROL 24 mg/dL (40-59); T4 FREE 1.11 ng/dL (0.76-1.46)
[2018-04-10 07:57] LABS: BASOPHILS % 0.7 % (0.0-2.0); EOSINOPHILS % 2.3 % (0.0-5.0); HEMATOCRIT. 31.7 % (36.0-48.0); HEMOGLOBIN. 10.4 g/dL (12.0-16.0); LYMPHOCYTES % 15.8 % (20.0-50.0); MEAN CORPUSCULAR HEMOGLOBIN 30.8 pg (28.0-32.0); MEAN CORPUSCULAR VOLUME 93.7 fL (81.0-99.0); MONOCYTES % 3.9 % (2.0-8.0); NEUTROPHILS % 77.3 % (40.0-76.0); PLATELET 307 x1000/uL (130-400); RED BLOOD CELL COUNT 3.38 mill/uL (4.2-5.4); RED CELL DISTRIBUTION WIDTH 14.4 % (11.6-14.6)
[2018-04-10] MEDS ORDERED: PHYTONADIONE 10MG/ML AMP SUBCUT ONE (09:15)
[2018-04-10] MEDS ORDERED: LIDOCAINE HCL 1% 20ML VIAL (Pyxis) INJ ONE (10:14)
[2018-04-10] MEDS ORDERED: CEFAZOLIN 1000MG PREMIX 50 ML IV ONE (10:31)
[2018-04-10] MEDS ORDERED: IOHEXOL-300 50 ML BOTTLE IV ONE (10:51)
[2018-04-10] MEDS ORDERED: PHYTONADIONE 10 MG in DEXTROSE 5% WATER 50 ML SUBCUT SCH (11:00)
[2018-04-10] MEDS ORDERED: PHYTONADIONE 10MG/ML AMP ONE (11:42)
[2018-04-10] MEDS: NYSTATIN POWDER 15GM TOP SCH ×3 (11:49→22:20)
[2018-04-10 12:00] VITALS: BP 112/48
[2018-04-10] MEDS: MORPHINE SULFATE 4 MG/ML CPJ (NOT FOR IM USE) IV PRN (12:55)
[2018-04-10] MEDS ORDERED: CETIRIZINE 10MG TABLET PO PRN (14:00)
[2018-04-10 16:00] VITALS: BP 133/41
[2018-04-10] MEDS: FUROSEMIDE 20MG TABLET PO SCH (17:00)
[2018-04-10] MEDS: LEVETIRACETAM 250MG TABLET PO SCH (17:00)
[2018-04-10] MEDS: CALCIUM ACETATE 667MG CAPSULE PO SCH (17:02)
[2018-04-10] MEDS: SEVELAMER CARBONATE 800 MG TABLET PO SCH (17:02)
[2018-04-10] MEDS ORDERED: GELATIN SPONGE,ABSORBABLE 12-7MM SPONGE ONE ×2 (17:28→18:59)
[2018-04-10] MEDS ORDERED: HEPARIN SODIUM 1,000 UNIT/1ML VIAL IV ONE (17:29)
[2018-04-10] MEDS ORDERED: THROMBIN (BOVINE) 5000 UNITS/VIAL TOP ONE (17:29)
[2018-04-10] MEDS ORDERED: BACITRACIN/POLYMYXIN B SULFATE OINT 28.35GM TOP ONE (17:29)
[2018-04-10] MEDS ORDERED: LIDOCAINE HCL/PF 1% 10 MG/ML 5ML VIAL ONE (17:30)
[2018-04-10] MEDS ORDERED: BUPIVACAINE HCL/PF 0.5% (5MG/ML) 10ML ONE (17:30)
[2018-04-10] MEDS ORDERED: BACITRACIN 50,000 UNITS/VIAL ONE (17:30)
[2018-04-10] MEDS ORDERED: GLYCOPYRROLATE 0.2 MG/ML 2ML VIAL ONE ×2 (17:50→19:49)
[2018-04-10] MEDS ORDERED: CEFAZOLIN SODIUM 1000MG/VIAL ONE (17:50)
[2018-04-10] MEDS ORDERED: SODIUM CHLORIDE 0.9% 10ML VIAL ONE (17:50)
[2018-04-10] MEDS ORDERED: ROCURONIUM BROMIDE 10MG/ML VIAL 5ML IV ONE (17:50)
[2018-04-10] MEDS ORDERED: FENTANYL CITRATE/PF 50MCG/ML 2ML VIAL ONE (17:50)
[2018-04-10] MEDS ORDERED: NEOSTIGMINE METHYLSULFATE 1MG/ML 10 ML VIAL ONE (17:50)
[2018-04-10] MEDS ORDERED: MIDAZOLAM HCL 2 MG/2 ML VIAL ONE (17:50)
[2018-04-10] MEDS ORDERED: PROPOFOL 200MG/20ML VIAL IV ONE (17:50)
[2018-04-10] MEDS ORDERED: GABAPENTIN 100MG CAPSULE PO SCH (18:00)
[2018-04-10] MEDS ORDERED: ONDANSETRON HCL 4MG/2ML INJ ONE (18:05)
[2018-04-10] MEDS ORDERED: METOCLOPRAMIDE HCL 10MG/2ML VIAL ONE (18:05)
[2018-04-10] MEDS ORDERED: EPHEDRINE SULFATE 50MG/ML VIAL ONE (18:05)
[2018-04-10] MEDS ORDERED: PHENYLEPHRINE HCL 10 MG/ML 1ML (IV VIAL) IV ONE (18:05)
[2018-04-10] MEDS ORDERED: DEXAMETHASONE 4MG/ML 1ML VIAL ONE (18:05)
[2018-04-10] MEDS ORDERED: SUCCINYLCHOLINE CHLORIDE 200MG/10ML IV ONE (18:05)
[2018-04-10] MEDS ORDERED: ROPIVACAINE HCL 10MG/ML 20 ML VIAL EPI ONE (18:40)
[2018-04-10] MEDS ORDERED: IPRATROPIUM/ALBUTEROL 0.5-3(2.5)MG/3ML NEB HHN NR (19:45)
[2018-04-10] MEDS ORDERED: MEPERIDINE HCL/PF 25MG/ML CPJ IV PRN (20:00)
[2018-04-10] MEDS ORDERED: HYDROMORPHONE HCL/PF 2MG/ML CPJ IV PRN (20:00)
[2018-04-10] MEDS ORDERED: LABETALOL 5MG/ML SYR 20 MG/4 ML SYRINGE IV PRN (20:00)
[2018-04-10] MEDS ORDERED: ONDANSETRON HCL 4MG/2ML INJ IV PRN (20:00)
[2018-04-10] MEDS ORDERED: EPHEDRINE SULFATE 50MG/ML VIAL IM NR (21:15)
[2018-04-10] MEDS ORDERED: EPHEDRINE SULFATE 50MG/ML VIAL IV NR (21:15)
[2018-04-10] MEDS: ATORVASTATIN CALCIUM 40MG TABLET PO SCH (22:27)
[2018-04-10] MEDS ORDERED: LEVETIRACETAM 250MG TABLET PO NR (23:00)
[2018-04-10] MEDS ORDERED: GABAPENTIN 100MG CAPSULE PO NR (23:00)
[2018-04-11] VITALS: BP 121/54
[2018-04-11 04:00] VITALS: BP 103/52
[2018-04-11] MEDS: NYSTATIN POWDER 15GM TOP SCH ×3 (06:00→21:13)
[2018-04-11] MEDS: OMEPRAZOLE 20MG CAPSULE EXTENDED RELEASE PO SCH (06:01)
[2018-04-11 06:35] LABS: BASOPHILS % 0.5 % (0.0-2.0); EOSINOPHILS % 0.8 % (0.0-5.0); HEMOGLOBIN. 9.5 g/dL (12.0-16.0); LYMPHOCYTES % 14.6 % (20.0-50.0); MEAN CORPUSCULAR HEMOGLOBIN 31.5 pg (28.0-32.0); MEAN CORPUSCULAR VOLUME 95.6 fL (81.0-99.0); MEAN PLATELET VOLUME 7.7 fl (7.4-10.4); MONOCYTES % 4.4 % (2.0-8.0); NEUTROPHILS % 79.7 % (40.0-76.0); PLATELET 309 x1000/uL (130-400); RED BLOOD CELL COUNT 3.03 mill/uL (4.2-5.4); RED CELL DISTRIBUTION WIDTH 14.5 % (11.6-14.6)
[2018-04-11] MEDS: BLOOD SUGAR DIAGNOSTIC STRIP TEST SCH ×4 (07:20→21:13)
[2018-04-11 08:11] VITALS: BP 104/58
[2018-04-11] MEDS: INSULIN LISPRO 100 UNITS/ML SUBCUT SCH ×4 (08:36→21:57)
[2018-04-11] MEDS ORDERED: WARFARIN SODIUM 3MG TABLET PO SCH (09:00)
[2018-04-11] MEDS: CALCIUM ACETATE 667MG CAPSULE PO SCH ×3 (09:57→17:25)
[2018-04-11] MEDS: FUROSEMIDE 20MG TABLET PO SCH ×2 (09:57→17:25)
[2018-04-11] MEDS: SEVELAMER CARBONATE 800 MG TABLET PO SCH ×3 (09:57→17:25)
[2018-04-11] MEDS: LEVETIRACETAM 250MG TABLET PO SCH ×2 (09:58→17:24)
[2018-04-11] MEDS ORDERED: CEFAZOLIN 2,000 MG in DEXT 5% WATER 100 ML IV SCH (10:15)
[2018-04-11 11:59] VITALS: BP 120/50
[2018-04-11] MEDS: GABAPENTIN 100MG CAPSULE PO SCH ×2 (11:59→21:13)
[2018-04-11] MEDS ORDERED: CEFAZOLIN 1000MG PREMIX 50 ML IV SCH (12:00)
[2018-04-11] MEDS: HYDROCODONE/ACETAMINOPHEN 5/325MG TABLET PO PRN ×2 (13:11→18:38)
[2018-04-11] MEDS: CEFAZOLIN 1000MG PREMIX 50 ML IV SCH (14:35)
[2018-04-11 16:25] VITALS: BP 116/62
[2018-04-11] MEDS: SIMETHICONE 80MG TABLET CHEW PO PRN (17:25)
[2018-04-11] MEDS: WARFARIN SODIUM 3MG TABLET PO SCH (17:25)
[2018-04-11 20:00] VITALS: BP 112/76
[2018-04-11] MEDS: ATORVASTATIN CALCIUM 40MG TABLET PO SCH (21:13)
[2018-04-12] VITALS: BP 118/78
[2018-04-12] MEDS: MORPHINE SULFATE 4 MG/ML CPJ (NOT FOR IM USE) IV PRN (00:03)
[2018-04-12 04:00] VITALS: BP 124/57
[2018-04-12] MEDS: BLOOD SUGAR DIAGNOSTIC STRIP TEST SCH ×3 (06:20→17:27)
[2018-04-12] MEDS: GABAPENTIN 100MG CAPSULE PO SCH ×2 (06:21→11:59)
[2018-04-12] MEDS: OMEPRAZOLE 20MG CAPSULE EXTENDED RELEASE PO SCH (06:21)
[2018-04-12] MEDS: NYSTATIN POWDER 15GM TOP SCH ×2 (06:23→12:04)
[2018-04-12 06:49] LABS: BASOPHILS % 0.3 % (0.0-2.0); EOSINOPHILS % 2.9 % (0.0-5.0); HEMATOCRIT. 28.6 % (36.0-48.0); HEMOGLOBIN. 9.4 g/dL (12.0-16.0); LYMPHOCYTES % 16.1 % (20.0-50.0); MEAN CORPUSCULAR HEMOGLOBIN 31.4 pg (28.0-32.0); MEAN CORPUSCULAR VOLUME 95.7 fL (81.0-99.0); MEAN PLATELET VOLUME 7.7 fl (7.4-10.4); MONOCYTES % 5.8 % (2.0-8.0); NEUTROPHILS % 74.9 % (40.0-76.0); PLATELET 318 x1000/uL (130-400); RED BLOOD CELL COUNT 2.99 mill/uL (4.2-5.4); RED CELL DISTRIBUTION WIDTH 14.9 % (11.6-14.6)
[2018-04-12 06:54] LABS: INR 1.1; PROTHROMBIN TIME 11.4 sec (9.1-11.1)
[2018-04-12 08:01] VITALS: BP 138/64
[2018-04-12] MEDS: INSULIN LISPRO 100 UNITS/ML SUBCUT SCH ×3 (08:37→17:29)
[2018-04-12] MEDS: SEVELAMER CARBONATE 800 MG TABLET PO SCH ×3 (08:38→17:26)
[2018-04-12] MEDS: FUROSEMIDE 20MG TABLET PO SCH ×2 (08:39→17:27)
[2018-04-12] MEDS: CALCIUM ACETATE 667MG CAPSULE PO SCH ×3 (08:39→17:27)
[2018-04-12] MEDS: HYDROCODONE/ACETAMINOPHEN 5/325MG TABLET PO PRN (08:39)
[2018-04-12] MEDS: LEVETIRACETAM 250MG TABLET PO SCH ×2 (08:39→17:27)
[2018-04-12] MEDS: CEFAZOLIN 1000MG PREMIX 50 ML IV SCH (11:55)
[2018-04-12] MEDS: SIMETHICONE 80MG TABLET CHEW PO PRN (11:59)
[2018-04-12 12:26] VITALS: BP 114/56
[2018-04-12 15:54] VITALS: BP 130/74
[2018-04-12 16:20] VITALS: BP 130/74
[2018-04-12] MEDS: WARFARIN SODIUM 3MG TABLET PO SCH (17:27)
== END 2018-04-12 18:17 | disposition home or self-care (01) | DRG 252 ==
LOC: ER 15:49 → 6WST 17:02 → EDBEDREQ 17:03 → EDBEDREQTM 17:03 → ENRESERV 18:02 → 6WST 23:15
PROVIDERS: ADMIT Internal Medicine; ATTEND Internal Medicine
PROC: 03PY0JZ Removal of Synthetic Substitute from Upper Artery, Open Approach (ICD-10-PCS; 2018-04-10)
PROC: 02HV33Z Insertion of Infusion Device into Superior Vena Cava, Percutaneous Approach (ICD-10-PCS; 2018-04-10)
PROC: B518YZA Fluoroscopy of Superior Vena Cava using Other Contrast, Guidance (ICD-10-PCS; 2018-04-10)
PROC: B548ZZA Ultrasonography of Superior Vena Cava, Guidance (ICD-10-PCS; 2018-04-10)
PROC: B51V1ZZ Fluoroscopy of Other Veins using Low Osmolar Contrast (ICD-10-PCS; 2018-04-10)
PROC: 5A1D70Z Performance of Urinary Filtration, Intermittent, Less than 6 Hours Per Day (ICD-10-PCS; 2018-04-10)
PROC: 03C80ZZ Extirpation of Matter from Left Brachial Artery, Open Approach (ICD-10-PCS; principal; 2018-04-10 17:00)
PROC: 5A1D70Z Performance of Urinary Filtration, Intermittent, Less than 6 Hours Per Day (ICD-10-PCS; 2018-04-11)
DX: T82.7XXA Infection and inflammatory reaction due to other cardiac and vascular devices, implants and grafts, initial encounter (principal); N18.6 End stage renal disease; R65.10 Systemic inflammatory response syndrome (SIRS) of non-infectious origin without acute organ dysfunction; E46 Unspecified protein-calorie malnutrition; I12.0 Hypertensive chronic kidney disease with stage 5 chronic kidney disease or end stage renal disease; Z68.42 Body mass index [BMI] 45.0-49.9, adult; E11.22 Type 2 diabetes mellitus with diabetic chronic kidney disease; D64.9 Anemia, unspecified; B95.61 Methicillin susceptible Staphylococcus aureus infection as the cause of diseases classified elsewhere; Y83.2 Surgical operation with anastomosis, bypass or graft as the cause of abnormal reaction of the patient, or of later complication, without mention of misadventure at the time of the procedure; E11.40 Type 2 diabetes mellitus with diabetic neuropathy, unspecified; E78.5 Hyperlipidemia, unspecified; G40.909 Epilepsy, unspecified, not intractable, without status epilepticus; K21.9 Gastro-esophageal reflux disease without esophagitis; Z79.01 Long term (current) use of anticoagulants; Z79.4 Long term (current) use of insulin; Z79.82 Long term (current) use of aspirin; Z82.49 Family history of ischemic heart disease and other diseases of the circulatory system; Z83.3 Family history of diabetes mellitus; Z86.73 Personal history of transient ischemic attack (TIA), and cerebral infarction without residual deficits; Z99.2 Dependence on renal dialysis; Z90.49 Acquired absence of other specified parts of digestive tract
CPT/HCPCS: 36415; 36556; 71045; 75827; 76937; 77001; 80048; 80061; 80202; 82962; 83605; 84134; 84145; 84439; 84443; 84484; 87070; 87075; 87077; 88304; 93005; 93306; 94640; 96365; 96366; 96367; 99291; A4216; C1725; C1752; C1769; C1884; C1887; J0330; J0690; J1100; J1642; J1644; J1815; J2250; J2270; J2370; J2405; J2543; J2704; J2710; J2765; J2795; J3010; J3370; J3430; J3490; J7030; J7040; J7050; J7060; J7620; Q9967

== ENCOUNTER 2018-04-18 16:12 | Inpatient (IN) | payer MEDICARE, MEDICAID ==
[~2018-04-18] VITALS: Ht 162.6 cm; Wt 90.7 kg
[~2018-04-18 16:12] MED LIST changes: -BACL-141 PO; +GABA-529 PO; +INSU300I SQ
[2018-04-18] MEDS ORDERED: OXYMETAZOLINE HCL NASAL SPRAY 15ML BOTHNSTRLS STA (17:34)
[2018-04-18 18:18] LABS: BASOPHILS % 0.6 % (0.0-2.0); EOSINOPHILS % 2.8 % (0.0-5.0); HEMATOCRIT. 32.2 % (36.0-48.0); HEMOGLOBIN. 10.9 g/dL (12.0-16.0); LYMPHOCYTES % 14.5 % (20.0-50.0); MEAN CORPUSCULAR HEMOGLOBIN 32.2 pg (28.0-32.0); MEAN CORPUSCULAR VOLUME 94.8 fL (81.0-99.0); MEAN PLATELET VOLUME 7.5 fl (7.4-10.4); MONOCYTES % 3.9 % (2.0-8.0); NEUTROPHILS % 78.2 % (40.0-76.0); PLATELET 315 x1000/uL (130-400); RED BLOOD CELL COUNT 3.39 mill/uL (4.2-5.4); RED CELL DISTRIBUTION WIDTH 14.4 % (11.6-14.6)
[2018-04-18 18:22] LABS: CHLORIDE 99 mEq/L (98-107)
[2018-04-18] MEDS ORDERED: DOCUSATE SODIUM 100MG CAPSULE PO PRN (22:30)
[2018-04-18] MEDS ORDERED: MORPHINE SULFATE 2 MG/ML CPJ (NOT FOR IM USE) IV PRN (22:30)
[2018-04-18] MEDS ORDERED: IPRATROPIUM/ALBUTEROL 0.5-3(2.5)MG/3ML NEB INH PRN (22:30)
[2018-04-18] MEDS ORDERED: CLONIDINE 0.1MG TABLET PO PRN (22:30)
[2018-04-18 23:00] VITALS: BP 119/58
[2018-04-18] MEDS ORDERED: MORPHINE SULFATE 10MG/5ML ORAL SOLN UDC PO PRN (23:15)
[2018-04-19] VITALS (16 sets, daily range): BP systolic 119–155; BP diastolic 51–82
[2018-04-19] MEDS: BLOOD SUGAR DIAGNOSTIC STRIP TEST SCH ×5 (00:14→20:52)
[2018-04-19] MEDS ORDERED: VANCOMYCIN 1250MG in DEXTROSE 5% WATER 250ML IV SCH (01:00)
[2018-04-19] MEDS: INSULIN LISPRO 100 UNITS/ML SUBCUT SCH ×5 (01:20→20:38)
[2018-04-19] MEDS: INSULIN GLARGINE UD 100 UNITS/ML SYR SUBCUT SCH ×2 (01:21→21:52)
[2018-04-19 07:45] LABS: BASOPHILS % 0.5 % (0.0-2.0); EOSINOPHILS % 3.2 % (0.0-5.0); HEMATOCRIT. 27.8 % (36.0-48.0); HEMOGLOBIN. 9.3 g/dL (12.0-16.0); LYMPHOCYTES % 18.8 % (20.0-50.0); MEAN CORPUSCULAR HEMOGLOBIN 31.4 pg (28.0-32.0); MEAN CORPUSCULAR VOLUME 94.2 fL (81.0-99.0); MONOCYTES % 4.3 % (2.0-8.0); NEUTROPHILS % 73.2 % (40.0-76.0); PLATELET 254 x1000/uL (130-400); RED BLOOD CELL COUNT 2.95 mill/uL (4.2-5.4); RED CELL DISTRIBUTION WIDTH 14.7 % (11.6-14.6)
[2018-04-19] MEDS ORDERED: LIDOCAINE HCL/EPINEPHRINE 1%-EPI 1:100,000 20 ML VIAL ONE (07:54)
[2018-04-19] MEDS ORDERED: LIDOCAINE HCL 1% 20ML VIAL (Pyxis) INJ ONE (07:54)
[2018-04-19] MEDS ORDERED: FENTANYL CITRATE/PF 50MCG/ML 2ML VIAL ONE (08:25)
[2018-04-19] MEDS ORDERED: IOHEXOL-300 50 ML BOTTLE IV ONE (08:40)
[2018-04-19] MEDS ORDERED: FENTANYL CITRATE/PF 50MCG/ML 2ML VIAL IV SCH (09:00)
[2018-04-19 09:41] LABS: CHLORIDE 102 mEq/L (98-107)
[2018-04-19 09:49] LABS: HDL CHOLESTEROL 36 mg/dL (40-59)
[2018-04-19 09:50] LABS: LDL CHOLESTEROL 27 mg/dL (5-100)
[2018-04-19] MEDS: ACETAMINOPHEN 325MG TABLET PO PRN ×2 (15:05→20:39)
[2018-04-19] MEDS: LEVETIRACETAM 500MG/5ML CUP PO SCH (20:37)
[2018-04-19] MEDS: ATORVASTATIN CALCIUM 20MG TABLET PO SCH (20:38)
[2018-04-19] MEDS: NYSTATIN POWDER 15GM TOP SCH (21:00)
[2018-04-19] MEDS: GABAPENTIN 100MG CAPSULE PO SCH (23:18)
[2018-04-20] VITALS: BP 133/61
[2018-04-20 04:00] VITALS: BP 130/63
[2018-04-20] MEDS: GABAPENTIN 100MG CAPSULE PO SCH ×3 (06:05→20:25)
[2018-04-20] MEDS: OMEPRAZOLE 20MG CAPSULE EXTENDED RELEASE PO SCH (06:05)
[2018-04-20] MEDS: BLOOD SUGAR DIAGNOSTIC STRIP TEST SCH ×4 (06:10→20:25)
[2018-04-20 08:00] VITALS: BP 117/75
[2018-04-20] MEDS: LEVETIRACETAM 500MG/5ML CUP PO SCH ×2 (09:24→20:25)
[2018-04-20] MEDS: NYSTATIN POWDER 15GM TOP SCH ×3 (09:24→20:25)
[2018-04-20] MEDS: AMLODIPINE 2.5MG TABLET PO SCH (09:24)
[2018-04-20] MEDS: ASPIRIN 81MG TABLET PO SCH (09:24)
[2018-04-20 11:26] LABS: BASOPHILS % 0.7 % (0.0-2.0); EOSINOPHILS % 4.6 % (0.0-5.0); HEMATOCRIT. 26.9 % (36.0-48.0); HEMOGLOBIN. 8.9 g/dL (12.0-16.0); LYMPHOCYTES % 22.2 % (20.0-50.0); MEAN CORPUSCULAR HEMOGLOBIN 31.4 pg (28.0-32.0); MEAN CORPUSCULAR VOLUME 95.2 fL (81.0-99.0); MONOCYTES % 5.1 % (2.0-8.0); NEUTROPHILS % 67.4 % (40.0-76.0); PLATELET 239 x1000/uL (130-400); RED BLOOD CELL COUNT 2.83 mill/uL (4.2-5.4); RED CELL DISTRIBUTION WIDTH 14.5 % (11.6-14.6)
[2018-04-20 12:00] VITALS: BP 156/71
[2018-04-20] MEDS: INSULIN LISPRO 100 UNITS/ML SUBCUT SCH ×3 (12:33→20:27)
[2018-04-20] MEDS: ACETAMINOPHEN 325MG TABLET PO PRN ×2 (16:37→23:01)
[2018-04-20 16:41] VITALS: BP 139/63
[2018-04-20 20:00] VITALS: BP 135/56
[2018-04-20] MEDS: ATORVASTATIN CALCIUM 20MG TABLET PO SCH (20:25)
[2018-04-20] MEDS: INSULIN GLARGINE UD 100 UNITS/ML SYR SUBCUT SCH (23:11)
[2018-04-21] VITALS: BP 138/57
[2018-04-21 04:00] VITALS: BP 133/80
[2018-04-21] MEDS: ACETAMINOPHEN 325MG TABLET PO PRN ×2 (05:36→13:36)
[2018-04-21] MEDS: OMEPRAZOLE 20MG CAPSULE EXTENDED RELEASE PO SCH (05:36)
[2018-04-21] MEDS: GABAPENTIN 100MG CAPSULE PO SCH ×3 (05:36→21:56)
[2018-04-21] MEDS: BLOOD SUGAR DIAGNOSTIC STRIP TEST SCH ×4 (05:56→21:43)
[2018-04-21] MEDS: INSULIN LISPRO 100 UNITS/ML SUBCUT SCH ×4 (05:56→22:02)
[2018-04-21 06:28] LABS: BASOPHILS % 0.9 % (0.0-2.0); EOSINOPHILS % 6.6 % (0.0-5.0); HEMATOCRIT. 26.7 % (36.0-48.0); HEMOGLOBIN. 8.8 g/dL (12.0-16.0); LYMPHOCYTES % 26.2 % (20.0-50.0); MEAN CORPUSCULAR HEMOGLOBIN 31.5 pg (28.0-32.0); MEAN CORPUSCULAR VOLUME 95.1 fL (81.0-99.0); MEAN PLATELET VOLUME 7.9 fl (7.4-10.4); MONOCYTES % 6.5 % (2.0-8.0); NEUTROPHILS % 59.8 % (40.0-76.0); PLATELET 191 x1000/uL (130-400); RED BLOOD CELL COUNT 2.81 mill/uL (4.2-5.4); RED CELL DISTRIBUTION WIDTH 14.5 % (11.6-14.6)
[2018-04-21 08:00] VITALS: BP 157/67
[2018-04-21] MEDS: NYSTATIN POWDER 15GM TOP SCH ×5 (09:00→17:52)
[2018-04-21] MEDS: ASPIRIN 81MG TABLET PO SCH (10:03)
[2018-04-21] MEDS: AMLODIPINE 2.5MG TABLET PO SCH (10:03)
[2018-04-21] MEDS: LEVETIRACETAM 500MG/5ML CUP PO SCH ×2 (10:03→21:56)
[2018-04-21 12:00] VITALS: BP 150/66
[2018-04-21 16:00] VITALS: BP 138/73
[2018-04-21] MEDS: VANCOMYCIN HCL 1000 MG/20 ML ORAL PO SCH ×2 (17:51→22:03)
[2018-04-21 20:00] VITALS: BP 138/80
[2018-04-21] MEDS ORDERED: EPOETIN ALFA 10000UNITS/ML VIAL SUBCUT SCH (21:00)
[2018-04-21] MEDS: ATORVASTATIN CALCIUM 20MG TABLET PO SCH (21:56)
[2018-04-21] MEDS: INSULIN GLARGINE UD 100 UNITS/ML SYR SUBCUT SCH (22:02)
[2018-04-22] VITALS: BP 121/71
[2018-04-22] MEDS: ACETAMINOPHEN 325MG TABLET PO PRN (00:52)
[2018-04-22 04:00] VITALS: BP 124/65
[2018-04-22] MEDS: BLOOD SUGAR DIAGNOSTIC STRIP TEST SCH ×2 (05:57→12:10)
[2018-04-22] MEDS: GABAPENTIN 100MG CAPSULE PO SCH ×2 (06:02→13:27)
[2018-04-22] MEDS: VANCOMYCIN HCL 1000 MG/20 ML ORAL PO SCH (06:02)
[2018-04-22] MEDS: INSULIN LISPRO 100 UNITS/ML SUBCUT SCH ×2 (06:03→12:40)
[2018-04-22 06:50] LABS: BASOPHILS % 0.6 % (0.0-2.0); EOSINOPHILS % 7.2 % (0.0-5.0); HEMATOCRIT. 28.2 % (36.0-48.0); HEMOGLOBIN. 9.4 g/dL (12.0-16.0); LYMPHOCYTES % 22.1 % (20.0-50.0); MEAN CORPUSCULAR HEMOGLOBIN 31.7 pg (28.0-32.0); MEAN CORPUSCULAR VOLUME 94.7 fL (81.0-99.0); MEAN PLATELET VOLUME 7.8 fl (7.4-10.4); MONOCYTES % 6.2 % (2.0-8.0); NEUTROPHILS % 63.9 % (40.0-76.0); PLATELET 188 x1000/uL (130-400); RED BLOOD CELL COUNT 2.97 mill/uL (4.2-5.4); RED CELL DISTRIBUTION WIDTH 14.6 % (11.6-14.6)
[2018-04-22] MEDS ORDERED: FAMOTIDINE 20MG TABLET PO SCH (09:00)
[2018-04-22] MEDS: NYSTATIN POWDER 15GM TOP SCH (09:34)
[2018-04-22] MEDS: LEVETIRACETAM 500MG/5ML CUP PO SCH (09:34)
[2018-04-22] MEDS: ASPIRIN 81MG TABLET PO SCH (09:34)
[2018-04-22] MEDS: AMLODIPINE 2.5MG TABLET PO SCH (09:35)
[2018-04-22] MEDS ORDERED: METRONIDAZOLE 250MG TABLET PO SCH (10:30)
[2018-04-22 11:40] VITALS: BP 126/59
[2018-04-22 12:05] VITALS: BP 117/68
[2018-04-25 04:17] LABS: OVA & PARASITE EXAM Final report (.)
== END 2018-04-22 13:47 | disposition home health service (06) | DRG 314 ==
LOC: ER 16:12 → 8WST 19:03 → SUPCPDRO 20:01 → ENRESERV 20:18
PROVIDERS: ADMIT Internal Medicine Nephrology; ATTEND Internal Medicine Nephrology
PROC: 0JH63XZ Insertion of Tunneled Vascular Access Device into Chest Subcutaneous Tissue and Fascia, Percutaneous Approach (ICD-10-PCS; 2018-04-19)
PROC: 02HV33Z Insertion of Infusion Device into Superior Vena Cava, Percutaneous Approach (ICD-10-PCS; 2018-04-19)
PROC: B518ZZA Fluoroscopy of Superior Vena Cava, Guidance (ICD-10-PCS; 2018-04-19)
PROC: B548ZZA Ultrasonography of Superior Vena Cava, Guidance (ICD-10-PCS; 2018-04-19)
PROC: B516ZZA Fluoroscopy of Right Subclavian Vein, Guidance (ICD-10-PCS; 2018-04-19)
PROC: 5A1D70Z Performance of Urinary Filtration, Intermittent, Less than 6 Hours Per Day (ICD-10-PCS; principal; 2018-04-20)
DX: T82.42XA Displacement of vascular dialysis catheter, initial encounter (principal); N18.6 End stage renal disease; I12.0 Hypertensive chronic kidney disease with stage 5 chronic kidney disease or end stage renal disease; D64.9 Anemia, unspecified; E11.22 Type 2 diabetes mellitus with diabetic chronic kidney disease; L89.159 Pressure ulcer of sacral region, unspecified stage; G40.909 Epilepsy, unspecified, not intractable, without status epilepticus; Y83.8 Other surgical procedures as the cause of abnormal reaction of the patient, or of later complication, without mention of misadventure at the time of the procedure; Z86.73 Personal history of transient ischemic attack (TIA), and cerebral infarction without residual deficits; Z90.49 Acquired absence of other specified parts of digestive tract; Z99.2 Dependence on renal dialysis; Z86.19 Personal history of other infectious and parasitic diseases; Y92.89 Other specified places as the place of occurrence of the external cause; Z79.01 Long term (current) use of anticoagulants; Z79.899 Other long term (current) drug therapy; Z79.82 Long term (current) use of aspirin
CPT/HCPCS: 36415; 36558; 36598; 71045; 75827; 76937; 77001; 80048; 80061; 80202; 82962; 84134; 84484; 87015; 87045; 87177; 87209; 87427; 87449; 87493; 97112; 97162; 97166; 99152; 99153; 99285; C1725; C1750; C1769; C1887; J0885; J1815; J3010; J3370; J3490; J7040; J7050; J7060; Q9967; G0500

== ENCOUNTER 2018-07-03 12:22 | Inpatient (IN) | payer MEDICARE, MEDICAID ==
[~2018-07-03] VITALS: Ht 152.4 cm; Wt 104.8 kg
[2018-07-03] MEDS ORDERED: SODIUM CHLORIDE 0.9% 250 ML IV ONE (12:38)
[2018-07-03] MEDS ORDERED: HYDRALAZINE 20MG/ML VIAL IV ONE (12:45)
[2018-07-03 13:26] LABS: CHLORIDE 92 mEq/L (98-107)
[2018-07-03 13:28] LABS: BASOPHILS % 0.5 % (0.0-2.0); EOSINOPHILS % 0.7 % (0.0-5.0); HEMATOCRIT. 39.8 % (36.0-48.0); HEMOGLOBIN. 12.5 g/dL (12.0-16.0); LYMPHOCYTES % 8.6 % (20.0-50.0); MEAN CORPUSCULAR HEMOGLOBIN 30.7 pg (28.0-32.0); MEAN CORPUSCULAR VOLUME 97.6 fL (81.0-99.0); MONOCYTES % 5.6 % (2.0-8.0); NEUTROPHILS % 84.6 % (40.0-76.0); PLATELET 214 x1000/uL (130-400); RED BLOOD CELL COUNT 4.08 mill/uL (4.2-5.4); RED CELL DISTRIBUTION WIDTH 16.6 % (11.6-14.6)
[2018-07-03 13:30] LABS: INR 1.2; PARTIAL THROMBOPLASTIN TIME 32.4 sec (23.4-31.0)
[2018-07-03] MEDS ORDERED: CALCIUM GLUCONATE 1,000 MG in DEXTROSE 5% WATER 50 ML IV ONE (13:45)
[2018-07-03] MEDS ORDERED: INSULIN REGULAR (HUMULIN R) 300UNITS/3ML IV ONE (13:45)
[2018-07-03] MEDS ORDERED: SODIUM BICARBONATE 8.4% 1 MEQ/ML 50ML SYR IV ONE (13:45)
[2018-07-03] MEDS ORDERED: ALBUTEROL (0.083%) 2.5MG/3ML NEB HHN ONE (13:45)
[2018-07-03] MEDS ORDERED: SODIUM POLYSTYRENE SULFONATE 15 G/60 ML BOT PO ONE ×2 (13:45)
[2018-07-03] MEDS ORDERED: DEXTROSE 50% WATER 50ML SYRINGE IV ONE (13:45)
[2018-07-03] MEDS ORDERED: ENOXAPARIN 40MG/0.4ML SYR SUBCUT SCH (14:00)
[2018-07-03] MEDS ORDERED: ASPIRIN 81MG TABLET PO ONE (15:00)
[2018-07-03] MEDS ORDERED: ENALAPRIL 2.5MG/2ML VIAL 2ML IV PRN (15:15)
[2018-07-03] MEDS ORDERED: IPRATROPIUM/ALBUTEROL 0.5-3(2.5)MG/3ML NEB HHN PRN (15:45)
[2018-07-03] MEDS ORDERED: HYDRALAZINE 20MG/ML VIAL IV SCH (18:00)
[2018-07-03] MEDS ORDERED: MORPHINE SULFATE 4 MG/ML CPJ (NOT FOR IM USE) IV PRN (18:30)
[2018-07-03] MEDS ORDERED: CLONIDINE 0.1MG TABLET PO PRN (18:30)
[2018-07-03] MEDS ORDERED: GUAIFENESIN 200MG/10ML SUGAR FREE UDC PO PRN (18:30)
[2018-07-03] MEDS ORDERED: LORAZEPAM 2MG/ML CPJ IV PRN (18:30)
[2018-07-03] MEDS ORDERED: DIPHENHYDRAMINE 50MG/ML VIAL IV PRN (18:30)
[2018-07-03] MEDS ORDERED: NA PHOS,M-B/NA PHOS,DI-BA ENEMA 118ML PR PRN (18:30)
[2018-07-03] MEDS ORDERED: MAGNESIUM/ALUMINUM HYDROXIDE/SIMETHICONE 30ML UDC PO PRN (18:30)
[2018-07-03] MEDS ORDERED: ONDANSETRON HCL 4MG/2ML INJ IV PRN (18:30)
[2018-07-03] MEDS ORDERED: IPRATROPIUM/ALBUTEROL 0.5-3(2.5)MG/3ML NEB INH PRN (18:30)
[2018-07-03] MEDS ORDERED: DOCUSATE SODIUM 100MG CAPSULE PO PRN (18:30)
[2018-07-03] MEDS ORDERED: ACETAMINOPHEN 325MG TABLET PO PRN (18:30)
[2018-07-03] MEDS ORDERED: SODIUM POLYSTYRENE SULFONATE 15 G/60 ML BOT PO NR (23:30)
[2018-07-04] MEDS ORDERED: DEXTROSE 50% WATER 50ML SYRINGE IV NR (02:45)
[2018-07-04] MEDS ORDERED: INSULIN REGULAR (HUMULIN R) 300UNITS/3ML IV NR (02:45)
[2018-07-04] MEDS ORDERED: SODIUM BICARBONATE 8.4% 1 MEQ/ML 50ML SYR IV NR (02:45)
[2018-07-04 08:00] VITALS: BP 156/83
[2018-07-04 10:07] LABS: BASOPHILS % 0.5 % (0.0-2.0); EOSINOPHILS % 1.9 % (0.0-5.0); HEMATOCRIT. 39.3 % (36.0-48.0); HEMOGLOBIN. 12.2 g/dL (12.0-16.0); LYMPHOCYTES % 9.3 % (20.0-50.0); MEAN CORPUSCULAR HEMOGLOBIN 30.1 pg (28.0-32.0); MEAN CORPUSCULAR VOLUME 97.3 fL (81.0-99.0); MEAN PLATELET VOLUME 8.5 fl (7.4-10.4); MONOCYTES % 11.9 % (2.0-8.0); NEUTROPHILS % 76.4 % (40.0-76.0); PLATELET 193 x1000/uL (130-400); RED BLOOD CELL COUNT 4.04 mill/uL (4.2-5.4); RED CELL DISTRIBUTION WIDTH 16.7 % (11.6-14.6)
[2018-07-04 10:14] LABS: CHLORIDE 98 mEq/L (98-107)
[2018-07-04 10:22] LABS: LDL CHOLESTEROL 91 mg/dL (5-100)
[2018-07-04 10:23] LABS: HDL CHOLESTEROL 50 mg/dL (40-59)
[2018-07-04 10:24] LABS: T4 FREE 1.16 ng/dL (0.76-1.46)
[2018-07-04] MEDS ORDERED: DOCU-150 MT (11:28)
[2018-07-04] MEDS ORDERED: AMLO5TAB88 MT (11:28)
[2018-07-04] MEDS ORDERED: CETI5TAB5 MT (11:28)
[2018-07-04] MEDS ORDERED: WARF4TAB71 MT (11:28)
[2018-07-04] MEDS ORDERED: WARF-67 MT (11:28)
[2018-07-04] MEDS ORDERED: TIZA2TAB4 MT (11:28)
[2018-07-04] MEDS ORDERED: LORA0.5T2 MT (11:30)
[2018-07-04] MEDS ORDERED: ONDA4SOL PO (11:30)
[2018-07-04] MEDS ORDERED: METO25TA6 MT (11:31)
[2018-07-04] MEDS ORDERED: ENALAPRIL 1.25MG/ML VIAL 1ML IV PRN (12:00)
[2018-07-04] MEDS ORDERED: HYDRALAZINE 20MG/ML VIAL IV SCH (12:00)
[2018-07-04] MEDS: ASPIRIN 81MG EC TABLET PO SCH (12:09)
[2018-07-04 12:15] VITALS: BP 156/57
[2018-07-04] MEDS: HYDRALAZINE HCL 25MG TABLET PO SCH ×2 (14:12→22:24)
[2018-07-04 16:00] VITALS: BP 173/59
[2018-07-04] MEDS ORDERED: DEXTROSE 50% WATER 50ML SYRINGE IV PRN (17:30)
[2018-07-04] MEDS: ACETAMINOPHEN WITH CODEINE 300/30MG TABLET PO PRN (17:49)
[2018-07-04] MEDS: INSULIN LISPRO 100 UNITS/ML SUBCUT SCH ×2 (18:27→21:00)
[2018-07-04 20:00] VITALS: BP 156/50
[2018-07-04] MEDS: BLOOD SUGAR DIAGNOSTIC STRIP TEST SCH (21:00)
[2018-07-04] MEDS: AMLODIPINE 5MG TABLET PO SCH (21:16)
[2018-07-04] MEDS: METOPROLOL TARTRATE 25MG TABLET PO SCH (21:16)
[2018-07-04] MEDS: ENOXAPARIN 40MG/0.4ML SYR SUBCUT SCH (21:17)
[2018-07-05] VITALS (7 sets, daily range): BP systolic 118–146; BP diastolic 43–66
[2018-07-05] MEDS: BLOOD SUGAR DIAGNOSTIC STRIP TEST SCH ×4 (06:37→21:00)
[2018-07-05] MEDS: HYDRALAZINE HCL 25MG TABLET PO SCH ×3 (06:37→23:36)
[2018-07-05 08:51] LABS: BASOPHILS % 1.1 % (0.0-2.0); EOSINOPHILS % 2.2 % (0.0-5.0); HEMATOCRIT. 36.4 % (36.0-48.0); HEMOGLOBIN. 11.4 g/dL (12.0-16.0); MEAN CORPUSCULAR HEMOGLOBIN 30.1 pg (28.0-32.0); MEAN PLATELET VOLUME 8.6 fl (7.4-10.4); MONOCYTES % 7.8 % (2.0-8.0); NEUTROPHILS % 76.9 % (40.0-76.0); PLATELET 216 x1000/uL (130-400); RED BLOOD CELL COUNT 3.79 mill/uL (4.2-5.4); RED CELL DISTRIBUTION WIDTH 16.7 % (11.6-14.6)
[2018-07-05] MEDS: ASPIRIN 81MG EC TABLET PO SCH (08:59)
[2018-07-05] MEDS: AMLODIPINE 5MG TABLET PO SCH ×2 (09:00→21:32)
[2018-07-05] MEDS: METOPROLOL TARTRATE 25MG TABLET PO SCH ×2 (09:00→21:32)
[2018-07-05] MEDS: INSULIN LISPRO 100 UNITS/ML SUBCUT SCH ×4 (09:21→23:17)
[2018-07-05] MEDS ORDERED: LIDOCAINE HCL/EPINEPHRINE 1%-EPI 1:100,000 30 ML VIAL INFIL NR (15:00)
[2018-07-05] MEDS ORDERED: NYSTATIN POWDER 15GM TOP SCH ×2 (17:00→18:45)
[2018-07-05] MEDS: ENOXAPARIN 40MG/0.4ML SYR SUBCUT SCH (21:31)
[2018-07-05] MEDS: NYSTATIN POWDER 15GM TOP SCH (21:33)
[2018-07-06] MEDS: ACETAMINOPHEN WITH CODEINE 300/30MG TABLET PO PRN (03:10)
[2018-07-06 04:00] VITALS: BP 134/42
[2018-07-06] MEDS: HYDRALAZINE HCL 25MG TABLET PO SCH ×3 (07:03→23:47)
[2018-07-06] MEDS: BLOOD SUGAR DIAGNOSTIC STRIP TEST SCH ×4 (07:04→21:00)
[2018-07-06] MEDS: INSULIN LISPRO 100 UNITS/ML SUBCUT SCH ×4 (08:30→20:57)
[2018-07-06] MEDS: AMLODIPINE 5MG TABLET PO SCH ×2 (10:06→20:59)
[2018-07-06] MEDS: METOPROLOL TARTRATE 25MG TABLET PO SCH ×2 (10:06→20:58)
[2018-07-06] MEDS: ASPIRIN 81MG EC TABLET PO SCH (10:06)
[2018-07-06] MEDS: NYSTATIN POWDER 15GM TOP SCH ×3 (10:07→18:14)
[2018-07-06 12:00] VITALS: BP 111/62
[2018-07-06] MEDS: HYDROCODONE/ACETAMINOPHEN 5/325MG TABLET PO PRN (13:33)
[2018-07-06 16:00] VITALS: BP 93/45
[2018-07-06 20:00] VITALS: BP 96/50
[2018-07-06] MEDS: ENOXAPARIN 40MG/0.4ML SYR SUBCUT SCH (20:50)
[2018-07-07] VITALS: BP 105/41
[2018-07-07 04:00] VITALS: BP 108/44
[2018-07-07] MEDS: HYDRALAZINE HCL 25MG TABLET PO SCH ×3 (06:00→22:00)
[2018-07-07] MEDS: BLOOD SUGAR DIAGNOSTIC STRIP TEST SCH ×3 (07:15→21:11)
[2018-07-07 08:00] VITALS: BP 113/53
[2018-07-07] MEDS: INSULIN LISPRO 100 UNITS/ML SUBCUT SCH ×4 (08:20→21:11)
[2018-07-07] MEDS: ASPIRIN 81MG EC TABLET PO SCH (08:21)
[2018-07-07] MEDS: AMLODIPINE 5MG TABLET PO SCH ×2 (09:00→21:09)
[2018-07-07] MEDS: METOPROLOL TARTRATE 25MG TABLET PO SCH ×2 (09:00→21:09)
[2018-07-07] MEDS: NYSTATIN POWDER 15GM TOP SCH ×3 (09:09→18:12)
[2018-07-07 09:17] LABS: BASOPHILS % 0.2 % (0.0-2.0); EOSINOPHILS % 5.5 % (0.0-5.0); HEMATOCRIT. 34.2 % (36.0-48.0); HEMOGLOBIN. 10.9 g/dL (12.0-16.0); LYMPHOCYTES % 14.6 % (20.0-50.0); MEAN CORPUSCULAR HEMOGLOBIN 30.4 pg (28.0-32.0); MEAN CORPUSCULAR VOLUME 95.4 fL (81.0-99.0); MONOCYTES % 6.2 % (2.0-8.0); NEUTROPHILS % 73.5 % (40.0-76.0); PLATELET 225 x1000/uL (130-400); RED BLOOD CELL COUNT 3.59 mill/uL (4.2-5.4)
[2018-07-07] MEDS: HYDROCODONE/ACETAMINOPHEN 5/325MG TABLET PO PRN (09:22)
[2018-07-07 12:00] VITALS: BP 111/57
[2018-07-07 16:00] VITALS: BP 116/60
[2018-07-07 20:00] VITALS: BP 118/97
[2018-07-07] MEDS: ENOXAPARIN 40MG/0.4ML SYR SUBCUT SCH (21:09)
[2018-07-07] MEDS: ACETAMINOPHEN WITH CODEINE 300/30MG TABLET PO PRN (23:02)
[2018-07-08] VITALS: BP 120/49
[2018-07-08 04:00] VITALS: BP 102/45
[2018-07-08] MEDS: BLOOD SUGAR DIAGNOSTIC STRIP TEST SCH ×2 (06:47→13:09)
[2018-07-08] MEDS: HYDRALAZINE HCL 25MG TABLET PO SCH ×2 (06:47→14:00)
[2018-07-08] MEDS: INSULIN LISPRO 100 UNITS/ML SUBCUT SCH ×2 (06:57→13:12)
[2018-07-08 07:54] LABS: BASOPHILS % 0.4 % (0.0-2.0); EOSINOPHILS % 4.7 % (0.0-5.0); HEMATOCRIT. 34.8 % (36.0-48.0); HEMOGLOBIN. 10.9 g/dL (12.0-16.0); LYMPHOCYTES % 16.5 % (20.0-50.0); MEAN CORPUSCULAR VOLUME 95.2 fL (81.0-99.0); MEAN PLATELET VOLUME 8.9 fl (7.4-10.4); MONOCYTES % 6.2 % (2.0-8.0); NEUTROPHILS % 72.2 % (40.0-76.0); PLATELET 233 x1000/uL (130-400); RED BLOOD CELL COUNT 3.65 mill/uL (4.2-5.4); RED CELL DISTRIBUTION WIDTH 15.9 % (11.6-14.6)
[2018-07-08 08:00] VITALS: BP 114/34
[2018-07-08] MEDS: METOPROLOL TARTRATE 25MG TABLET PO SCH (09:00)
[2018-07-08] MEDS: AMLODIPINE 5MG TABLET PO SCH (09:04)
[2018-07-08] MEDS: NYSTATIN POWDER 15GM TOP SCH ×2 (09:09→13:13)
[2018-07-08] MEDS: ASPIRIN 81MG EC TABLET PO SCH (09:12)
[2018-07-08] MEDS: HYDROCODONE/ACETAMINOPHEN 5/325MG TABLET PO PRN ×2 (09:19→17:55)
[2018-07-08 10:42] VITALS: BP 114/34
[2018-07-08 12:00] VITALS: BP 99/42
[2018-07-08 17:55] VITALS: BP 124/50
== END 2018-07-08 19:34 | disposition home or self-care (01) | DRG 40 ==
LOC: ER 12:22 → 6WST 14:28 → CANRESERV 23:39 → ENRESERV 23:39
PROVIDERS: ADMIT Internal Medicine; ATTEND Internal Medicine
PROC: 5A1D70Z Performance of Urinary Filtration, Intermittent, Less than 6 Hours Per Day (ICD-10-PCS; 2018-07-03)
PROC: 5A1D70Z Performance of Urinary Filtration, Intermittent, Less than 6 Hours Per Day (ICD-10-PCS; 2018-07-05)
PROC: 0JB70ZZ Excision of Back Subcutaneous Tissue and Fascia, Open Approach (ICD-10-PCS; principal; 2018-07-06)
PROC: 5A1D70Z Performance of Urinary Filtration, Intermittent, Less than 6 Hours Per Day (ICD-10-PCS; 2018-07-07)
DX: G93.41 Metabolic encephalopathy (principal); L89.153 Pressure ulcer of sacral region, stage 3; N18.6 End stage renal disease; I13.2 Hypertensive heart and chronic kidney disease with heart failure and with stage 5 chronic kidney disease, or end stage renal disease; I50.30 Unspecified diastolic (congestive) heart failure; J84.9 Interstitial pulmonary disease, unspecified; I69.354 Hemiplegia and hemiparesis following cerebral infarction affecting left non-dominant side; E87.5 Hyperkalemia; D64.9 Anemia, unspecified; E11.22 Type 2 diabetes mellitus with diabetic chronic kidney disease; R56.9 Unspecified convulsions; E11.42 Type 2 diabetes mellitus with diabetic polyneuropathy; E11.65 Type 2 diabetes mellitus with hyperglycemia; E11.51 Type 2 diabetes mellitus with diabetic peripheral angiopathy without gangrene; E66.01 Morbid (severe) obesity due to excess calories; E78.5 Hyperlipidemia, unspecified; M19.90 Unspecified osteoarthritis, unspecified site; E86.0 Dehydration; F41.9 Anxiety disorder, unspecified; I25.10 Atherosclerotic heart disease of native coronary artery without angina pectoris; I44.0 Atrioventricular block, first degree; Z99.2 Dependence on renal dialysis; Z91.15 Patient's noncompliance with renal dialysis; Z90.49 Acquired absence of other specified parts of digestive tract; Z79.4 Long term (current) use of insulin; Z79.82 Long term (current) use of aspirin; Z79.899 Other long term (current) drug therapy; Z82.49 Family history of ischemic heart disease and other diseases of the circulatory system; Z83.3 Family history of diabetes mellitus
CPT/HCPCS: 36415; 71045; 80048; 80061; 82140; 82962; 83735; 83880; 84134; 84439; 84443; 84484; 93005; 93306; 94640; 96361; 96374; 96375; 99291; J0360; J0610; J1650; J1815; J2270; J3490; J7050; J7060; J7611; J7620